=== PATIENT | male | born 1985 | race Caucasian/White ===

== ENCOUNTER 2023-04-05 12:48 | Inpatient (IN) | payer MEDICAID, OTHER ==
[~2023-04-05] VITALS: Ht 172.7 cm; Wt 78.3 kg
[~2023-04-05 12:48] MED LIST: OLAN7.5T22 PO
[2023-04-05 14:19] LABS: BASOPHILS % (AUTO) 0.2 % (0.0-2.0); EOSINOPHILS % (AUTO) 0.1 % (1.0-6.0); LYMPHOCYTES # (AUTO) 0.8 K/uL (1.0-4.8); LYMPHOCYTES % (AUTO) 3.9 % (22.0-44.0); MEAN CORPUSCULAR HGB CONC 34.6 G/dL (31.0-37.0); MEAN CORPUSCULAR VOLUME 87 fL (80-100); MONOCYTES # (AUTO) 1.3 K/uL (0.1-1.0); MONOCYTES % (AUTO) 5.9 % (2.0-9.0); NEUTROPHILS # (AUTO) 19.7 K/uL (1.8-7.7); PLATELET COUNT (AUTO) 264 K/uL (150-450); RED BLOOD CELL COUNT(AUTO) 5.65 MIL/uL (4.50-5.90)
[2023-04-05 14:20] LABS: NEUTROPHILS % (AUTO) 89.9 % (40.0-70.0)
[2023-04-05 14:38] LABS: ALANINE AMINOTRANSFERASE 42 U/L (12-78); ALBUMIN 3.4 g/dL (3.4-5.0); ALKALINE PHOSPHATASE 80 U/L (46-116); ANION GAP 11 mmol/L (8-16); ASPARTATE AMINOTRANSFERASE 44 U/L (15-37); BILIRUBIN,TOTAL 0.4 mg/dL (0.1-1.0); CALCIUM, TOTAL 9.5 mg/dL (8.8-10.5); CARBON DIOXIDE 25 mmol/L (22-29); CHLORIDE 102 mmol/L (98-107); CREATININE 1.68 mg/dL (0.60-1.30); GLOMERULAR FILTR. RATE CALC 46 mL/min (>60); GLUCOSE,RANDOM 190 mg/dL (70-110); SODIUM SERUM 138 mmol/L (136-145)
[2023-04-05 14:40] LABS: POTASSIUM 2.8 mmol/L (3.5-5.1)
[2023-04-05] MEDS ORDERED: POTASSIUM CHLORIDE 10% 40 MEQ/30 ML LIQUID UDCUP PO ONE (14:45)
[2023-04-05] MEDS ORDERED: LORazepam 2 MG TABLET PO PRN (15:00)
[2023-04-05] MEDS ORDERED: OLANZapine 5 MG RAPDIS TABLET PO PRN (15:00)
[2023-04-05] MEDS ORDERED: ZOLPIDEM TARTRATE 10 MG TABLET PO PRN (15:00)
[2023-04-05] MEDS ORDERED: SODIUM CHLORIDE 0.9% 1,000 ML IV ONE ×3 (15:00→16:30)
[2023-04-05] MEDS ORDERED: ACETAMINOPHEN 325 MG TABLET PO ONE (15:30)
[2023-04-05 15:55] LABS: LACTIC ACID 2.9 mmol/L (0.4-2.0)
[2023-04-05 15:57] LABS: B-TYPE NATRIURETIC PEPTIDE < 5 pg/mL (0-100)
[2023-04-05] MEDS ORDERED: MORPHINE SULFATE 2 MG/ML SYRINGE IVP PRN (16:30)
[2023-04-05] MEDS ORDERED: *CLINICAL-CEFEPIME DOSING CLINICAL ONE (16:30)
[2023-04-05] MEDS ORDERED: ONDANSETRON HCL 4 MG/2 ML VIAL IVP PRN (16:30)
[2023-04-05] MEDS ORDERED: ACETAMINOPHEN 325 MG TABLET PO PRN (16:30)
[2023-04-05] MEDS ORDERED: POTASSIUM CHL 10 MEQ/WATER 50 ML IV PRN (16:45)
[2023-04-05] MEDS ORDERED: LORazepam 2 MG/ML VIAL IVP PRN (16:45)
[2023-04-05] MEDS ORDERED: CEFEPIME HCL 2 GM in DEXTROSE 5%-WATER 50 ML IV ONE (17:00)
[2023-04-05] MEDS: ASPIRIN 325 MG TABLET PO SCH (17:01)
[2023-04-05 17:37] LABS: CREATINE KINASE, TOTAL ONLY 1326 U/L (39-308)
[2023-04-05 17:50] LABS: COVID AG,FIA SOURCE NASAL SWAB
[2023-04-05] MEDS ORDERED: VANCOMYCIN 1GM/WATER(PEG/NADA) 200 ML IV ONE (18:00)
[2023-04-05 18:32] LABS: APPEARANCE,URINE CLEAR (CLEAR); BILIRUBIN,URINE NEGATIVE (NEGATIVE); GLUCOSE, URINE (UA) TRACE mg/dL (NEGATIVE); KETONES,URINE NEGATIVE (NEGATIVE); LEUKOCYTE ESTERASE ,URINE NEGATIVE (NEGATIVE); NITRATE,URINE NEGATIVE (NEGATIVE); OCCULT BLOOD,URINE LARGE (NEGATIVE); PH,URINE 6.5 (5.0-8.0); PROTEIN,URINE 100-200,SEE CONFIRM mg/dL (NEGATIVE); SPECIFIC GRAVITIY, URINE 1.014 (1.003-1.030); UROBILINOGEN,URINE <=1.0 mg/dL (<=1.0)
[2023-04-05 18:38] LABS: AMPHET/METH SCREEN,URINE NEGATIVE (NEGATIVE); BARBITURATE SCREEN, URINE NEGATIVE (NEGATIVE); BENZODIAZEPINES SCREEN,URINE NEGATIVE (NEGATIVE); CANNABINOID SCREEN,URINE NEGATIVE (NEGATIVE); COCAINE SCREEN,URINE NEGATIVE (NEGATIVE); METHADONE SCREEN, URINE NEGATIVE (NEGATIVE); OPIATE SCREEN,URINE NEGATIVE (NEGATIVE); PHENCYCLIDINE SCREEN,URINE NEGATIVE (NEGATIVE)
[2023-04-05 18:43] LABS: BACTERIA,URINE None Seen /HPF (None Seen); SQUAMOUS EPITHELIAL CELL,UR Few /LPF (None Seen); SULFOSALICYLIC ACID,URINE 2+ (Negative); WBC,URINE None Seen /HPF (0-5)
[2023-04-06] MEDS: HEPARIN SODIUM,PORCINE 5,000 UNITS/ML VIAL SQ SCH ×3 (00:25→17:20)
[2023-04-06] MEDS: DOCUSATE SODIUM 100 MG CAPSULE PO SCH ×3 (00:25→20:18)
[2023-04-06] MEDS: FAMOTIDINE 20 MG TABLET PO SCH ×3 (00:25→20:19)
[2023-04-06 01:12] LABS: AMPHET/METH SCREEN,URINE NEGATIVE (NEGATIVE); BARBITURATE SCREEN, URINE NEGATIVE (NEGATIVE); BENZODIAZEPINES SCREEN,URINE NEGATIVE (NEGATIVE); CANNABINOID SCREEN,URINE NEGATIVE (NEGATIVE); COCAINE SCREEN,URINE NEGATIVE (NEGATIVE); METHADONE SCREEN, URINE NEGATIVE (NEGATIVE); OPIATE SCREEN,URINE NEGATIVE (NEGATIVE); PHENCYCLIDINE SCREEN,URINE NEGATIVE (NEGATIVE)
[2023-04-06] MEDS: POTASSIUM CHLORIDE 20 MEQ ER TABLET PO PRN ×2 (01:40→07:02)
[2023-04-06] MEDS ORDERED: CEFEPIME HCL 2 GM in DEXTROSE 5%-WATER 50 ML IV SCH (06:00)
[2023-04-06] MEDS: ASPIRIN 325 MG TABLET PO SCH (08:25)
[2023-04-06 09:37] VITALS: BP 140/86; PULSE 93; RESP 18; TEMP 98.6
[2023-04-06 09:42] LABS: BASOPHILS % (AUTO) 0.5 % (0.0-2.0); EOSINOPHILS % (AUTO) 0.3 % (1.0-6.0); HEMATOCRIT 45.8 % (41-53); HEMOGLOBIN 15.3 g/dL (13.5-17.5); LYMPHOCYTES # (AUTO) 1.5 K/uL (1.0-4.8); MEAN CORPUSCULAR HEMOGLOBIN 29.5 pg (26.0-34.0); MEAN CORPUSCULAR HGB CONC 33.5 G/dL (31.0-37.0); MEAN CORPUSCULAR VOLUME 88 fL (80-100); MONOCYTES # (AUTO) 0.8 K/uL (0.1-1.0); MONOCYTES % (AUTO) 7.7 % (2.0-9.0); NEUTROPHILS # (AUTO) 7.7 K/uL (1.8-7.7); NEUTROPHILS % (AUTO) 76.5 % (40.0-70.0); PLATELET COUNT (AUTO) 243 K/uL (150-450); RED BLOOD CELL COUNT(AUTO) 5.21 MIL/uL (4.50-5.90); RED CELL DISTRIBUTION WIDTH 13.2 % (11.5-14.5)
[2023-04-06 09:49] LABS: ANION GAP 12 mmol/L (8-16); CALCIUM, TOTAL 8.4 mg/dL (8.8-10.5); CARBON DIOXIDE 21 mmol/L (22-29); CHLORIDE 108 mmol/L (98-107); CREATININE 1.26 mg/dL (0.60-1.30); GLOMERULAR FILTR. RATE CALC > 60 mL/min (>60); GLUCOSE,RANDOM 269 mg/dL (70-110); POTASSIUM 3.8 mmol/L (3.5-5.1); SODIUM SERUM 141 mmol/L (136-145)
[2023-04-06 11:54] VITALS: BP 141/91; PULSE 79; RESP 19; TEMP 98.4
[2023-04-06] MEDS ORDERED: SODIUM CHLORIDE 0.9% 250 ML IV ONE (14:41)
[2023-04-06] MEDS: CEFEPIME HCL 2 GM in DEXTROSE 5%-WATER 50 ML IV SCH ×2 (14:53→21:17)
[2023-04-06 15:04] VITALS: BP 126/80; PULSE 90; RESP 19; TEMP 98.5
[2023-04-06 19:30] VITALS: BP 140/98; PULSE 81; RESP 20; TEMP 98.2
[2023-04-06] MEDS: OLANZapine 7.5 MG TABLET PO SCH (20:19)
[2023-04-06] MEDS ORDERED: OLANZapine 7.5 MG TABLET PO SCH ×2 (21:00)
[2023-04-07] VITALS (7 sets, daily range): BP systolic 144–157; BP diastolic 79–107; PULSE 76–100; RESP 16–20; TEMP 97.6–98.7
[2023-04-07] MEDS: HEPARIN SODIUM,PORCINE 5,000 UNITS/ML VIAL SQ SCH ×4 (00:33→23:37)
[2023-04-07] MEDS ORDERED: SODIUM CHLORIDE 0.9% 250 ML IV ONE (05:21)
[2023-04-07] MEDS: CEFEPIME HCL 2 GM in DEXTROSE 5%-WATER 50 ML IV SCH ×3 (05:43→21:06)
[2023-04-07] MEDS: OxyCODONE HCL/ACETAMINOPHEN 5-325 MG TABLET PO PRN ×3 (08:18→17:21)
[2023-04-07] MEDS: DOCUSATE SODIUM 100 MG CAPSULE PO SCH ×2 (08:18→20:41)
[2023-04-07] MEDS: FAMOTIDINE 20 MG TABLET PO SCH ×2 (08:18→20:41)
[2023-04-07] MEDS: ASPIRIN 325 MG TABLET PO SCH (08:18)
[2023-04-07] MEDS ORDERED: LISI-892 PO (13:25)
[2023-04-07] MEDS ORDERED: METF-1211 PO (13:25)
[2023-04-07] MEDS ORDERED: MELA5TAB40 PO (13:25)
[2023-04-07] MEDS ORDERED: VALB40CA2 PO (13:25)
[2023-04-07] MEDS ORDERED: FENO160T75 PO (13:25)
[2023-04-07] MEDS ORDERED: QUET300T2 PO (13:25)
[2023-04-07] MEDS: OLANZapine 7.5 MG TABLET PO SCH (20:41)
[2023-04-08 04:36] VITALS: BP 149/91; PULSE 69; RESP 20; TEMP 98.6
[2023-04-08] MEDS: CEFEPIME HCL 2 GM in DEXTROSE 5%-WATER 50 ML IV SCH ×3 (05:41→22:24)
[2023-04-08 08:00] VITALS: BP 159/93; PULSE 92; RESP 20; TEMP 99.2
[2023-04-08] MEDS ORDERED: DEXTROSE 50%-WATER 25 GM/50 ML SYRINGE IVP PRN (08:00)
[2023-04-08] MEDS: DOCUSATE SODIUM 100 MG CAPSULE PO SCH ×2 (08:54→20:47)
[2023-04-08] MEDS: ASPIRIN 325 MG TABLET PO SCH (08:54)
[2023-04-08] MEDS: HEPARIN SODIUM,PORCINE 5,000 UNITS/ML VIAL SQ SCH ×2 (08:54→15:32)
[2023-04-08] MEDS: FAMOTIDINE 20 MG TABLET PO SCH ×2 (08:54→20:47)
[2023-04-08 16:30] VITALS: BP 135/88; PULSE 78; RESP 19; TEMP 98.5
[2023-04-08] MEDS: INSULIN LISPRO 100 UNITS/ML SQ PRN ×2 (17:36→20:48)
[2023-04-08 17:42] LABS: GLUCOMETER DEV NAME(LOC) 5S.1B; GLUCOSE,POINT OF CARE 109 MG/DL (70-110)
[2023-04-08 17:42] LABS: GLUCOMETER DEV NAME(LOC) 5S.1B; GLUCOSE,POINT OF CARE 209 MG/DL (70-110)
[2023-04-08 20:31] VITALS: BP 155/107; PULSE 81; RESP 18; TEMP 98.5
[2023-04-08] MEDS ORDERED: SODIUM CHLORIDE 0.9% 250 ML IV ONE (20:36)
[2023-04-08] MEDS: OLANZapine 7.5 MG TABLET PO SCH (20:47)
[2023-04-09] MEDS: HEPARIN SODIUM,PORCINE 5,000 UNITS/ML VIAL SQ SCH ×3 (00:04→16:00)
[2023-04-09 00:30] VITALS: BP 148/94; PULSE 78; RESP 18; TEMP 98.2
[2023-04-09 01:51] LABS: GLUCOMETER DEV NAME(LOC) 5N.2C; GLUCOSE,POINT OF CARE 217 MG/DL (70-110)
[2023-04-09 05:00] VITALS: BP 150/88; PULSE 82; RESP 18; TEMP 98
[2023-04-09] MEDS: CEFEPIME HCL 2 GM in DEXTROSE 5%-WATER 50 ML IV SCH ×3 (05:33→21:26)
[2023-04-09] MEDS: INSULIN LISPRO 100 UNITS/ML SQ PRN ×4 (05:41→21:33)
[2023-04-09 08:05] VITALS: BP 146/88; PULSE 108; RESP 19; TEMP 98.5
[2023-04-09 08:21] LABS: GLUCOMETER DEV NAME(LOC) 5S.2C; GLUCOSE,POINT OF CARE 196 MG/DL (70-110)
[2023-04-09] MEDS: DOCUSATE SODIUM 100 MG CAPSULE PO SCH ×2 (08:27→21:26)
[2023-04-09] MEDS: ASPIRIN 325 MG TABLET PO SCH (08:27)
[2023-04-09] MEDS: FAMOTIDINE 20 MG TABLET PO SCH ×2 (08:27→21:26)
[2023-04-09 17:25] VITALS: BP 136/93; PULSE 92; RESP 19; TEMP 98
[2023-04-09 19:29] VITALS: BP 139/97; PULSE 93; RESP 18; TEMP 98.7
[2023-04-09 20:51] LABS: GLUCOMETER DEV NAME(LOC) 5S.1B; GLUCOSE,POINT OF CARE 291 MG/DL (70-110)
[2023-04-09] MEDS: OLANZapine 7.5 MG TABLET PO SCH (21:26)
[2023-04-09 21:31] LABS: GLUCOMETER DEV NAME(LOC) 5N.2C; GLUCOSE,POINT OF CARE 195 MG/DL (70-110)
[2023-04-09 21:36] LABS: GLUCOMETER DEV NAME(LOC) 5S.1B; GLUCOSE,POINT OF CARE 219 MG/DL (70-110)
[2023-04-10] MEDS: HEPARIN SODIUM,PORCINE 5,000 UNITS/ML VIAL SQ SCH ×3 (00:04→16:26)
[2023-04-10 00:06] VITALS: BP 138/96; PULSE 111; RESP 18; TEMP 98.3
[2023-04-10 04:34] VITALS: BP 124/94; PULSE 104; RESP 19; TEMP 97.8
[2023-04-10] MEDS: CEFEPIME HCL 2 GM in DEXTROSE 5%-WATER 50 ML IV SCH ×2 (05:39→14:15)
[2023-04-10] MEDS: INSULIN LISPRO 100 UNITS/ML SQ PRN ×4 (06:04→20:03)
[2023-04-10 06:26] LABS: GLUCOMETER DEV NAME(LOC) 5N.2C; GLUCOSE,POINT OF CARE 201 MG/DL (70-110)
[2023-04-10 08:11] VITALS: BP 139/100; PULSE 89; RESP 19; TEMP 98
[2023-04-10] MEDS: ASPIRIN 325 MG TABLET PO SCH (08:55)
[2023-04-10] MEDS: DOCUSATE SODIUM 100 MG CAPSULE PO SCH ×2 (08:55→20:02)
[2023-04-10] MEDS: FAMOTIDINE 20 MG TABLET PO SCH ×2 (08:55→20:02)
[2023-04-10 12:17] VITALS: BP 165/103; PULSE 127; RESP 19; TEMP 98.3
[2023-04-10 16:20] VITALS: BP 154/102; PULSE 111; RESP 19; TEMP 98.1
[2023-04-10 17:36] LABS: GLUCOMETER DEV NAME(LOC) 5S.2C; GLUCOSE,POINT OF CARE 345 MG/DL (70-110)
[2023-04-10] MEDS ORDERED: MetFORMIN HCL 500 MG TABLET PO SCH (18:00)
[2023-04-10 19:11] LABS: COVID AG,FIA SOURCE NASAL SWAB
[2023-04-10 19:56] LABS: GLUCOMETER DEV NAME(LOC) 5S.2C; GLUCOSE,POINT OF CARE 285 MG/DL (70-110)
[2023-04-10] MEDS: OLANZapine 7.5 MG TABLET PO SCH (20:02)
[2023-04-10 20:07] VITALS: BP 124/91; PULSE 107; RESP 17; TEMP 97.9
[2023-04-10] MEDS ORDERED: MELATONIN 5 MG TABLET PO SCH (21:00)
[2023-04-10] MEDS ORDERED: FENOFIBRATE 160 MG TABLET PO SCH (21:00)
[2023-04-10 23:01] LABS: GLUCOMETER DEV NAME(LOC) 5N.2C; GLUCOSE,POINT OF CARE 281 MG/DL (70-110)
[2023-04-11] MEDS ORDERED: LISINOPRIL 5 MG TABLET PO SCH (09:00)
[2023-04-11] MEDS ORDERED: FLUV100T22 PO (18:20)
[2023-04-11] MEDS ORDERED: BUPR-317 PO (18:20)
[2023-04-11] MEDS ORDERED: BENZ1TAB84 PO (18:20)
[2023-04-11] MEDS ORDERED: MONT-40 PO (18:20)
== END 2023-04-10 21:41 | DRG 720 ==
LOC: EMS 13:53 → AHU 16:29 → 5S 04-06 07:10
PROVIDERS: ADMIT Internal Medicine; ATTEND Internal Medicine
DX: A41.9 Sepsis, unspecified organism (principal); I21.A1 Myocardial infarction type 2; G92.9 Unspecified toxic encephalopathy; N17.9 Acute kidney failure, unspecified; F20.0 Paranoid schizophrenia; F31.9 Bipolar disorder, unspecified; M62.82 Rhabdomyolysis; E11.9 Type 2 diabetes mellitus without complications; Z20.822 Contact with and (suspected) exposure to COVID-19; E87.6 Hypokalemia; Z88.2 Allergy status to sulfonamides; Z79.899 Other long term (current) drug therapy; Z79.84 Long term (current) use of oral hypoglycemic drugs
CPT/HCPCS: 71045; 80048; 80053; 80307; 81001; 81002; 82550; 82962; 83605; 83880; 84132; 84484; 85025; 87040; 93005; 93306; 99285; G0378; G0480; J0692; J1644; J7050; J7060; Q9967; 36415-L1; 36415-TC

== ENCOUNTER 2023-04-10 15:43 | Inpatient (IN) | payer MEDICAID ==
[~2023-04-10] VITALS: Ht 177.8 cm; Wt 78.5 kg
[~2023-04-10 15:43] MED LIST changes: +FENO160T75 PO; +LISI-892 PO; +MELA5TAB40 PO; +METF-1211 PO; +QUET300T2 PO; +VALB40CA2 PO
[2023-04-10] MEDS ORDERED: ZOLPIDEM TARTRATE 10 MG TABLET PO PRN (18:30)
[2023-04-10] MEDS ORDERED: HALOPERIDOL 5 MG TABLET PO PRN (18:30)
[2023-04-10] MEDS ORDERED: IBUPROFEN 400 MG TABLET PO PRN (23:00)
[2023-04-10] MEDS ORDERED: MAG HYDROX/AL HYDROX/SIMETH ES 30 ML SUSPENSION UDCUP PO PRN (23:00)
[2023-04-10] MEDS ORDERED: GuaiFENesin/D-METHORPHAN [SUGAR-FREE] 200-20MG/10 ML SYRUP UDCUP PO PRN (23:00)
[2023-04-10] MEDS ORDERED: CloNIDine HCL 0.1 MG TABLET PO PRN (23:00)
[2023-04-10] MEDS ORDERED: ACETAMINOPHEN 325 MG TABLET PO PRN (23:00)
[2023-04-10] MEDS ORDERED: PETROLATUM,WHITE 28 GM JELLY TP PRN (23:00)
[2023-04-10] MEDS ORDERED: MAGNESIUM HYDROXIDE SUSPENSION 30 ML UDCUP PO PRN (23:00)
[2023-04-10] MEDS ORDERED: ALBUTEROL SULFATE HFA 90 MCG/PUFF 8 GM INHALER IH PRN (23:00)
[2023-04-10] MEDS ORDERED: LOPERAMIDE HCL 2 MG CAPSULE PO PRN (23:00)
[2023-04-10] MEDS ORDERED: ONDANSETRON HCL 4 MG TABLET PO PRN (23:00)
[2023-04-10] MEDS ORDERED: NICOTINE 14 MG/24 HOUR PATCH TD PRN (23:00)
[2023-04-10] MEDS ORDERED: DOCUSATE SODIUM 100 MG CAPSULE PO PRN (23:00)
[2023-04-11] MEDS ORDERED: GLUCAGON,HUMAN RECOMBINANT 1 MG VIAL IM PRN (01:30)
[2023-04-11 06:26] LABS: GLUCOMETER DEV NAME(LOC) BV3N.; GLUCOSE,POINT OF CARE 165 MG/DL (70-110)
[2023-04-11] MEDS: INSULIN LISPRO 100 UNITS/ML SQ PRN ×4 (06:37→21:21)
[2023-04-11] MEDS: MetFORMIN HCL 500 MG TABLET PO SCH ×2 (06:40→16:56)
[2023-04-11 07:52] LABS: BASOPHILS % (AUTO) 0.6 % (0.0-2.0); EOSINOPHILS % (AUTO) 1.8 % (1.0-6.0); HEMATOCRIT 54.9 % (41-53); HEMOGLOBIN 18.7 g/dL (13.5-17.5); LYMPHOCYTES # (AUTO) 2.5 K/uL (1.0-4.8); LYMPHOCYTES % (AUTO) 30.9 % (22.0-44.0); MEAN CORPUSCULAR HEMOGLOBIN 29.8 pg (26.0-34.0); MEAN CORPUSCULAR HGB CONC 34.1 G/dL (31.0-37.0); MEAN CORPUSCULAR VOLUME 87 fL (80-100); MONOCYTES # (AUTO) 0.9 K/uL (0.1-1.0); MONOCYTES % (AUTO) 11.4 % (2.0-9.0); NEUTROPHILS # (AUTO) 4.5 K/uL (1.8-7.7); NEUTROPHILS % (AUTO) 55.3 % (40.0-70.0); PLATELET COUNT (AUTO) 280 K/uL (150-450); RED BLOOD CELL COUNT(AUTO) 6.29 MIL/uL (4.50-5.90)
[2023-04-11 08:16] LABS: ALANINE AMINOTRANSFERASE 86 U/L (12-78); ALBUMIN 3.4 g/dL (3.4-5.0); ALKALINE PHOSPHATASE 101 U/L (46-116); ANION GAP 10 mmol/L (8-16); ASPARTATE AMINOTRANSFERASE 41 U/L (15-37); BILIRUBIN,TOTAL 0.6 mg/dL (0.1-1.0); CALCIUM, TOTAL 9.6 mg/dL (8.8-10.5); CARBON DIOXIDE 24 mmol/L (22-29); CHLORIDE 104 mmol/L (98-107); CHOL/HDL RATIO 6.1 (4.2-7.3); CHOLESTEROL 200 mg/dL (131-200); FREE T4 (FREE THYROXINE) 1.71 ng/dL (0.76-1.46); GLOMERULAR FILTR. RATE CALC > 60 mL/min (>60); GLUCOSE,RANDOM 159 mg/dL (70-110); HDL CHOLESTEROL 33 mg/dL (40-60); HEMOGLOBIN A1C 6.9 % (3.8-5.6); POTASSIUM 4.2 mmol/L (3.5-5.1); SODIUM SERUM 138 mmol/L (136-145); THYROID STIMULATING HORMONE 0.39 uIU/mL (0.36-3.74); TOTAL PROTEIN, SERUM 7.7 g/dL (6.4-8.2); TRIGLYCERIDES 444 mg/dL (15-150)
[2023-04-11 08:22] VITALS: BP 156/90; PULSE 135; RESP 19; TEMP 97.6; O2SAT 99
[2023-04-11] MEDS: LORazepam 2 MG TABLET PO PRN ×2 (08:24→16:56)
[2023-04-11] MEDS ORDERED: LISINOPRIL 5 MG TABLET PO SCH (09:00)
[2023-04-11 11:46] LABS: GLUCOMETER DEV NAME(LOC) BV3N.; GLUCOSE,POINT OF CARE 171 MG/DL (70-110)
[2023-04-11 15:15] VITALS: BP 140/84; PULSE 88; RESP 18; TEMP 97.7; O2SAT 97
[2023-04-11 17:06] LABS: GLUCOMETER DEV NAME(LOC) BV3N.; GLUCOSE,POINT OF CARE 172 MG/DL (70-110)
[2023-04-11] MEDS ORDERED: MONT-40 PO (18:20)
[2023-04-11] MEDS ORDERED: FLUV100T22 PO (18:20)
[2023-04-11] MEDS ORDERED: BENZ1TAB84 PO (18:20)
[2023-04-11] MEDS ORDERED: BUPR-317 PO (18:20)
[2023-04-11 20:05] VITALS: BP 138/82; PULSE 98; RESP 18; TEMP 98; O2SAT 98
[2023-04-11] MEDS: OLANZapine 10 MG TABLET PO SCH (21:15)
[2023-04-11] MEDS: FENOFIBRATE 160 MG TABLET PO SCH (21:15)
[2023-04-11] MEDS: MELATONIN 5 MG TABLET PO SCH (21:15)
[2023-04-11 22:11] LABS: GLUCOMETER DEV NAME(LOC) BV3N.; GLUCOSE,POINT OF CARE 154 MG/DL (70-110)
[2023-04-12] MEDS: MetFORMIN HCL 500 MG TABLET PO SCH ×2 (06:28→16:24)
[2023-04-12 06:31] LABS: GLUCOMETER DEV NAME(LOC) BV3N.; GLUCOSE,POINT OF CARE 174 MG/DL (70-110)
[2023-04-12] MEDS: INSULIN LISPRO 100 UNITS/ML SQ PRN ×3 (06:35→17:09)
[2023-04-12] MEDS: LISINOPRIL 5 MG TABLET PO SCH (08:17)
[2023-04-12 08:23] VITALS: BP 138/84; PULSE 88; RESP 17; TEMP 98.5; O2SAT 96
[2023-04-12 11:56] LABS: GLUCOMETER DEV NAME(LOC) BV3N.; GLUCOSE,POINT OF CARE 154 MG/DL (70-110)
[2023-04-12 17:06] LABS: GLUCOMETER DEV NAME(LOC) BV3N.; GLUCOSE,POINT OF CARE 220 MG/DL (70-110)
[2023-04-12] MEDS: MELATONIN 5 MG TABLET PO SCH (20:00)
[2023-04-12] MEDS: FENOFIBRATE 160 MG TABLET PO SCH (20:00)
[2023-04-12] MEDS: OLANZapine 10 MG TABLET PO SCH (20:00)
[2023-04-12 20:14] VITALS: BP 153/72; PULSE 105; RESP 18; TEMP 98; O2SAT 96
[2023-04-12 20:51] LABS: GLUCOMETER DEV NAME(LOC) BV3N.; GLUCOSE,POINT OF CARE 120 MG/DL (70-110)
[2023-04-13] MEDS: MetFORMIN HCL 500 MG TABLET PO SCH ×2 (06:02→16:04)
[2023-04-13 06:11] LABS: GLUCOMETER DEV NAME(LOC) BV3N.; GLUCOSE,POINT OF CARE 161 MG/DL (70-110)
[2023-04-13] MEDS: INSULIN LISPRO 100 UNITS/ML SQ PRN ×4 (06:11→21:04)
[2023-04-13 08:38] VITALS: BP 123/74; PULSE 91; RESP 17; TEMP 98.6; O2SAT 95
[2023-04-13] MEDS: LISINOPRIL 5 MG TABLET PO SCH (08:53)
[2023-04-13 11:31] LABS: GLUCOMETER DEV NAME(LOC) BV3N.; GLUCOSE,POINT OF CARE 194 MG/DL (70-110)
[2023-04-13 16:41] LABS: GLUCOMETER DEV NAME(LOC) BV3N.; GLUCOSE,POINT OF CARE 244 MG/DL (70-110)
[2023-04-13] MEDS: FENOFIBRATE 160 MG TABLET PO SCH (20:06)
[2023-04-13] MEDS: OLANZapine 10 MG TABLET PO SCH (20:06)
[2023-04-13] MEDS: MELATONIN 5 MG TABLET PO SCH (20:07)
[2023-04-13 20:12] VITALS: BP 106/66; PULSE 102; RESP 18; TEMP 98.2; O2SAT 97
[2023-04-13] MEDS: PALIPERIDONE 3 MG ER TABLET PO SCH (21:12)
[2023-04-13 21:16] LABS: GLUCOMETER DEV NAME(LOC) BV3N.; GLUCOSE,POINT OF CARE 193 MG/DL (70-110)
[2023-04-14] MEDS: MetFORMIN HCL 500 MG TABLET PO SCH ×2 (06:10→16:23)
[2023-04-14 06:22] LABS: GLUCOMETER DEV NAME(LOC) BV3N.; GLUCOSE,POINT OF CARE 125 MG/DL (70-110)
[2023-04-14 08:02] VITALS: BP 112/60; PULSE 91; RESP 17; TEMP 98.3; O2SAT 96
[2023-04-14] MEDS: LISINOPRIL 5 MG TABLET PO SCH (08:03)
[2023-04-14 08:13] VITALS: BP 102/60; PULSE 91; RESP 17; TEMP 98.3; O2SAT 96
[2023-04-14] MEDS ORDERED: PALIPERIDONE 3 MG ER TABLET PO SCH (09:00)
[2023-04-14] MEDS: INSULIN LISPRO 100 UNITS/ML SQ PRN ×3 (11:36→20:43)
[2023-04-14 11:51] LABS: GLUCOMETER DEV NAME(LOC) BV3N.; GLUCOSE,POINT OF CARE 160 MG/DL (70-110)
[2023-04-14 17:01] LABS: GLUCOMETER DEV NAME(LOC) BV3N.; GLUCOSE,POINT OF CARE 214 MG/DL (70-110)
[2023-04-14] MEDS: MELATONIN 5 MG TABLET PO SCH (20:09)
[2023-04-14] MEDS: FENOFIBRATE 160 MG TABLET PO SCH (20:09)
[2023-04-14] MEDS: OLANZapine 10 MG TABLET PO SCH (20:09)
[2023-04-14] MEDS: PALIPERIDONE 3 MG ER TABLET PO SCH (20:09)
[2023-04-14 20:10] VITALS: BP 108/62; PULSE 89; RESP 18; TEMP 98; O2SAT 97
[2023-04-14 21:01] LABS: GLUCOMETER DEV NAME(LOC) BV3N.; GLUCOSE,POINT OF CARE 163 MG/DL (70-110)
[2023-04-15 06:02] LABS: GLUCOMETER DEV NAME(LOC) BV3N.; GLUCOSE,POINT OF CARE 145 MG/DL (70-110)
[2023-04-15] MEDS: MetFORMIN HCL 500 MG TABLET PO SCH ×2 (06:06→16:07)
[2023-04-15] MEDS: INSULIN LISPRO 100 UNITS/ML SQ PRN ×3 (06:09→20:23)
[2023-04-15 08:24] VITALS: BP 128/80; PULSE 99; RESP 18; TEMP 97.6; O2SAT 100
[2023-04-15] MEDS: LISINOPRIL 5 MG TABLET PO SCH (08:26)
[2023-04-15 08:31] VITALS: BP 126/80; PULSE 100; RESP 18; TEMP 97.6; O2SAT 99
[2023-04-15 11:26] LABS: GLUCOMETER DEV NAME(LOC) BV3N.; GLUCOSE,POINT OF CARE 133 MG/DL (70-110)
[2023-04-15 16:36] LABS: GLUCOMETER DEV NAME(LOC) BV3N.; GLUCOSE,POINT OF CARE 173 MG/DL (70-110)
[2023-04-15] MEDS: OLANZapine 10 MG TABLET PO SCH (20:08)
[2023-04-15] MEDS: PALIPERIDONE 3 MG ER TABLET PO SCH (20:08)
[2023-04-15] MEDS: MELATONIN 5 MG TABLET PO SCH (20:09)
[2023-04-15] MEDS: FENOFIBRATE 160 MG TABLET PO SCH (20:09)
[2023-04-15 20:17] VITALS: BP 108/67; PULSE 75; RESP 18; TEMP 98.1; O2SAT 96
[2023-04-15 20:56] LABS: GLUCOMETER DEV NAME(LOC) BV3N.; GLUCOSE,POINT OF CARE 197 MG/DL (70-110)
[2023-04-16] MEDS: INSULIN LISPRO 100 UNITS/ML SQ PRN ×4 (06:21→20:47)
[2023-04-16] MEDS: MetFORMIN HCL 500 MG TABLET PO SCH ×2 (06:21→16:47)
[2023-04-16 06:36] LABS: GLUCOMETER DEV NAME(LOC) BV3N.; GLUCOSE,POINT OF CARE 127 MG/DL (70-110)
[2023-04-16 08:06] VITALS: BP 124/80; PULSE 100; RESP 18; TEMP 97.9; O2SAT 98
[2023-04-16] MEDS: LISINOPRIL 5 MG TABLET PO SCH (08:33)
[2023-04-16] MEDS ORDERED: PALIPERIDONE PALMITATE 234 MG/1.5 ML SYRINGE IM SCH (09:00)
[2023-04-16 12:01] LABS: GLUCOMETER DEV NAME(LOC) BV3N.; GLUCOSE,POINT OF CARE 205 MG/DL (70-110)
[2023-04-16] MEDS: LORazepam 2 MG TABLET PO PRN ×2 (16:48→20:48)
[2023-04-16 17:01] LABS: GLUCOMETER DEV NAME(LOC) BV3N.; GLUCOSE,POINT OF CARE 216 MG/DL (70-110)
[2023-04-16 20:02] VITALS: BP 114/65; PULSE 95; RESP 19; TEMP 97.8; O2SAT 96
[2023-04-16 20:31] LABS: GLUCOMETER DEV NAME(LOC) BV3N.; GLUCOSE,POINT OF CARE 192 MG/DL (70-110)
[2023-04-16] MEDS: OLANZapine 10 MG TABLET PO SCH (20:45)
[2023-04-16] MEDS: MELATONIN 5 MG TABLET PO SCH (20:45)
[2023-04-16] MEDS: FENOFIBRATE 160 MG TABLET PO SCH (20:45)
[2023-04-17] MEDS: MetFORMIN HCL 500 MG TABLET PO SCH (06:25)
[2023-04-17] MEDS: INSULIN LISPRO 100 UNITS/ML SQ PRN (06:32)
[2023-04-17 06:36] LABS: GLUCOMETER DEV NAME(LOC) BV3N.; GLUCOSE,POINT OF CARE 168 MG/DL (70-110)
[2023-04-17 08:50] VITALS: BP 136/84; PULSE 106; RESP 17; TEMP 98.3; O2SAT 96
[2023-04-17] MEDS: LISINOPRIL 5 MG TABLET PO SCH (09:41)
[2023-04-17] MEDS ORDERED: PALI234D IM (10:43)
[2023-04-17] MEDS ORDERED: LISI-892 PO (10:45)
[2024-04-13] MEDS ORDERED: PALIPERIDONE 3 MG ER TABLET PO SCH (21:00)
== END 2023-04-17 11:29 | disposition home or self-care (01) | DRG 750 ==
LOC: B3A 22:36
PROVIDERS: ADMIT Psychiatry & Neurology Psychiatry; ATTEND Psychiatry & Neurology Psychiatry
DX: F20.9 Schizophrenia, unspecified (principal); E11.9 Type 2 diabetes mellitus without complications; E78.5 Hyperlipidemia, unspecified; F94.0 Selective mutism; I10 Essential (primary) hypertension; Z79.899 Other long term (current) drug therapy; Z88.2 Allergy status to sulfonamides
CPT/HCPCS: 80053; 80061; 82962; 83036; 84439; 84443; 85025; Q9967